=== PATIENT | male | born 1950 | race Caucasian/White ===

== ENCOUNTER → 2020-04-03 | Outpatient (CLI) | payer MEDICARE | END | disposition home or self-care (01) | LOC: STAR 14:25 | PROVIDERS: ATTEND Anesthesiology | DX: Z01.89 Encounter for other specified special examinations (principal); R79.1 Abnormal coagulation profile; R94.31 Abnormal electrocardiogram [ECG] [EKG] | CPT/HCPCS: 93005 ==